=== PATIENT | male | born 1950 | race Caucasian/White ===

== ENCOUNTER 2025-06-29 08:00 | Outpatient (OUT) | payer MEDICARE, OTHER, SELFPAY ==
--- OUTSIDE RECORDS SUMMARY | 2025-06-22 10:30 | XMS_ITS | Encounter Summary ---
Author Organization [facility] Address [address] [place] [address] Care Team Providers Care Injection Mold Technician Name Role Phone Amanda Lopez MD Primary Care Provider [phone] Amanda Lopez MD Unavailable Jana Varner LPN Unavailable [phone] Reason for Visit * ReasonCommentsCerumen Impaction Encounter Details DateTypeDepartmentCare Team (Latest Contact Info)Wkiaequoand87/11/2025 10:30 AM ESTOffice Visit [facility] [address] [place] [address] Kori Teran NP [address] [place], [place] [id number] Impacted cerumen of right ear (Primary Dx); Gynecomastia, male; Low sodium levels; Keratosis, seborrheic Social History Tobacco UseTypesPacks/DayYears UsedDateSmoking Tobacco: NeverSmokeless Tobacco: NeverAlcohol UseStandard Drinks/WeekCommentsYes0 (1 standard drink = 0.6 oz pure alcohol)caffeine: 2-3 cups per dayPHQ-2AnswerDate RecordedPatient Health Questionnaire-2 Yuxqy58608/16/2024Sex and Gender InformationValueDate RecordedSex Assigned at BirthNot on fileLegal DsdZubf9409/24/2022 6:36 PM EDTGender Identity Not on fileSexual OrientationNot on filedocumented as of this encounter Last Filed Vital Signs Vital SignReadingTime TakenCommentsBlood Capomcbu628/8406/22/2025 10:22 AM EST Ubtsj448106/22/2025 10:22 AM OGOMktssyvysvd71.3 ??C (97.4 ??F)06/22/2025 10:22 AM ESTRespiratory Rate--Oxygen Vwwlgxhfzg76%06/22/2025 10:22 AM ESTInhaled Oxygen Concentration--Wkgfub59 kg (167 lb 9.6 oz)06/22/2025 10:22 AM ESTHeight--Body Mass Index30.6506/15/2025 9:57 AM ESTdocumented in this encounter Progress Notes * Kori Teran NP - 06/22/2025 10:30 AM EST Images from the original note were not included. Subjective ?Quick Links Last Note in Specialty Snapshot Edit RFV/CC Edit Screenings Current Meds Patient ID: Nathan Nieves is a 74 y.o. male who presents for Cerumen Impaction. HPI History of Present Illness The patient is a 74-year-old male who presents for evaluation of cerumen impaction, chest pain, lowsodium, hypertension, hyperlipidemia, borderline diabetes, and seborrheic keratosis. He reports an issue with earwax accumulation, for which he has been using a prescribed medication for the past 4 days. He experienced breast pain last week, described as a sensation similar to a lump. An ultrasound of both breasts was performed on Thursday, revealing no abnormalities. However, he continues to experience tenderness in the area, which he distinguishes from cardiac-related pain. He notes that the affected side appears larger than the other, despite being informed that no lump was detected. This is a new symptom for him, and he does not recall any trauma to the area. His father had a lump removed years ago. He was advised to discontinue one of his diuretic medications due to low sodium levels. He has a history of hypertension, with previous readings as high as 180 systolic. His current blood pressure medication has been effective in managing his condition. He is currently on pravastatin for cholesterol management. His A1c level has decreased from 6.3 to 6.2 since his last visit. He was prescribed metformin but discontinued it due to gastrointestinal side effects. He undergoes routine blood sugar monitoring every 3 months. He has several moles on his back and is under the care of a hvac designer, whom he visits annually.He has had a few moles removed in the past. Supplemental Information He reports no current issues with his prostate, which was treated 6 to 7 years ago. FAMILY HISTORY His father had a lump removed years ago. MEDICATIONS Current: pravastatin Discontinued: metformin ?Quick Review Review Full History Edit History Meds - Current Medications[1] --- PMH - Abnormal vascular flow COVID Diverticulosis DM (diabetes mellitus) (HCC) Enlarged prostate Esophageal reflux Hoarse HTN (hypertension) Hx of thyroid nodule Incarcerated ventral hernia Localized osteoarthrosis Mixed hyperlipidemia Objective ?Quick Links Add Vitals Timeline (Adult) Labs Imaging Results Review Trend Vitals ?? Avoid pulling in long tables of results. Comment on relevant results to support your medical decision making. Temp 97.4 ??F Wt 167 lb 9.6 oz BMI 30.65 kg/m?? Physical Exam Vitals reviewed. HENT: Head: Normocephalic and atraumatic. Right Ear: There is impacted cerumen. Left Ear: There is impacted cerumen. Nose: Nose normal. Mouth/Throat: Mouth: Mucous membranes are moist. Eyes: Pupils: Pupils are equal, round, and reactive to light. Cardiovascular: Rate and Rhythm: Normal rate and regular rhythm. Pulses: Normal pulses. Heart sounds: Normal heart sounds. Pulmonary: Effort: Pulmonary effort is normal. Breath sounds: Normal breath sounds. Chest: Breasts: Right: Swelling and tenderness present. Left: Swelling and tenderness present. Musculoskeletal: Cervical back: Neck supple. Skin: General: Skin is warm and dry. Capillary Refill: Capillary refill takes less than 2 seconds. Findings: No rash. Comments: Multiple seborrheic keratosis lesions noted scattered throughout the back Neurological: General: No focal deficit present. Mental Status: He is alert and oriented to person, place, and time. Physical Exam Vital Signs: Blood pressure is normal. HEENT: Cerumen impaction noted in the ears. Eardrum visible on one side. Integumentary: Seborrheic keratosis noted on the back. ?Quick Links Full Problem List Cardiology Diabetes GI Hypertension Thyroid Assessment & Plan Gynecomastia, male Orders: Testosterone; Future Low sodium levels Orders: Comprehensive metabolic panel; Future Impacted cerumen of right ear Keratosis, seborrheic Assessment & Plan 1. Cerumen impaction. The patient reports using ear drops for the past 4 days. Examination reveals that one ear is ready for cleaning, while the other is not as severe. An ear irrigation will be performed today to alleviate the cerumen impaction. 2. Gynomastica The patient reports chest pain associated with a lump-like sensation. An ultrasound of both breastswas performed, showing mild to moderate nodular gynecomastia without any neoplasm. Blood work will be conducted to further investigate the cause of the swelling. Consideration for Aldactone contributing to this issue, depending on results of testosterone, we may DC this medication. 3. Low sodium. The patient was previously advised to stop taking one of his water pills due to low sodium levels. Blood work will be rechecked today to monitor his sodium levels. 4. Hypertension. The patient's blood pressure is currently well-controlled at around 130 mmHg. He is on a new medication that has been effective in managing his hypertension. Continued monitoring of blood pressure isrecommended. 5. Hyperlipidemia. The patient's triglycerides are slightly elevated at 188 mg/dL, but his LDL is well-controlled at 72 mg/dL. Lifestyle modifications are recommended to manage his triglyceride levels. 6. Borderline diabetes. The patient's A1c has improved from 6.3% to 6.2%. He is not currently taking metformin due to gastrointestinal issues. Continued monitoring of blood glucose levels every 3 months is recommended. 7. Seborrheic keratosis. The patient has multiple seborrheic keratoses on his back, which are benign. He will continue to follow with dermatology annually. PROCEDURE Procedure: Earwax removal - Procedural Discussion: Discussed the need to flush out earwax due to blockage and discomfort. Patient had been using medicine for the past 4 days to soften the wax. - Technique: Earwax was softened with medicine for 4 days prior to the procedure. Earwax removal was performed by flushing out the ear canal. - Post-Procedural Discussion: Earwax removal was completed successfully. The ear canal was cleared,and the eardrum was visible. He will follow up in 3 months or earlier if needed. [1] ascorbic acid (Vitamin C) 100 MG tablet aspirin 81 MG EC tablet carbamide peroxide (Debrox) 6.5 % otic solution carvedilol (Coreg) 25 MG tablet ezetimibe (Zetia) 10 MG tablet Multiple Vitamin (multivitamin) tablet omeprazole (PriLOSEC) [address] capsule pravastatin (Pravachol) 10 MG tablet spironolactone (Aldactone) 50 MG tablet valsartan (Diovan) 320 MG tablet chlorthalidone (Hygroton) 25 MG tablet documented in this encounter Plan of Treatment DateTypeDepartmentCare Team (Latest Contact Info)Bgxhtuqvdhr37/09/2026 10:30 AM EDTOffice Visit [facility] [address] [place] [address] Kori Teran NP [address] [place], [place] [phone] documented as of this encounter Procedures Procedure NamePriorityDate/TimeAssociated DiagnosisCommentsTESTOSTERONE, TOTAL, MALES (ADULT), XHTyabfmu14/11/2025 10:58 AM EST Gynecomastia, male COMPREHENSIVE METABOLIC CSULUTutzgqe78/11/2025 10:58 AM EST Low sodium levels documented in this encounter Results * (ABNORMAL) Testosterone (06/22/2025 10:58 AM EST)ComponentValueRef RangeTest MethodAnalysis TimePerformed AtPathologist SignatureTESTOSTERONE, TOTAL, MALES (ADULT), IA131(L)250 - 827 ng/dLQUESTComment: In hypogonadal males, Testosterone, Total, LC/MS/MS, is the recommended assay due to the diminished accuracy of immunoassay at levels below 250 ng/dL. This test code (00439) must be collected in a red-top tube with no gel. Specimen (Source)Anatomical Location / LateralityCollection Method / Volume Collection TimeReceived TimeBloodVenous blood specimen / Vizrtjl9606/22/2025 10:58 AM EST06/22/2025 10:58 AM EST Narrative Resulting Agency Comment Performing Organization Information ?Site ID: QPT ?Name: [facility] ?Address: [address] [place] [address], [address] [place] [id number] ?Director: Tomás Sharma MD Authorizing ProviderResult TypeResult StatusKori Teran NPLAB BLOOD ORDERABLESFinal ResultPerforming OrganizationAddressCity/State/ZIP CodePhone Number [facility] * (ABNORMAL) Comprehensive metabolic panel (06/22/2025 10:58 AM EST)Component ValueRef RangeTest MethodAnalysis TimePerformed AtPathologist SignatureGlucose 9965 - 99 mg/dLQUESTComment: ? Fasting reference interval AKN704 - 25 mg/dLQUESTCreatinine0.970.70 - 1.28 mg/vSVSLJNOUWW95> OR = 60 mL/min/1.59l0BSZOJUYG/CREATININE RATIOSEE NOTE: (calc)QUESTComment: ?? Not Reported: BUN and Creatinine are within ?? reference range. ? Wgrlmg497(L)135 - 146 mmol/LQUESTPotassium, Bld4.73.5 - 5.3 mmol/LQUESTChloride 96(L)98 - 110 mmol/LQUESTCarbon Apyccxe0306 - 32 mmol/LQUESTCalcium9.38.6 - 10.3 mg/dLQUESTPROTEIN, TOTAL7.06.1 - 8.1 g/dLQUESTALBUMIN4.53.6 - 5.1 g/dLQUEST GLOBULIN2.51.9 - 3.7 g/dL (calc)QUESTALBUMIN/GLOBULIN RATIO1.81.0 - 2.5 (calc) QUESTBILIRUBIN, TOTAL0.40.2 - 1.2 mg/dLQUESTALKALINE ONISEPKULZZ0575 - 144 U/L ZTASKSSA6907 - 35 U/VKNLRJNWT351 - 46 U/LQUESTSpecimen (Source)Anatomical Location / LateralityCollection Method / VolumeCollection TimeReceived TimeBlood Venous blood specimen / Dpzdwfs4806/22/2025 10:58 AM EST06/22/2025 10:58 AM EST Narrative Resulting Agency Comment Performing Organization Information ?Site ID: QPT ?Name: [facility] ?Address: [facility], [address] [place] [phone] ?Director: Tomás Sharma MD Authorizing ProviderResult TypeResult StatusNavos Health Kimberlipearisburg NPLAB BLOOD ORDERABLESFinal ResultPerforming OrganizationAddressCity/State/ZIP CodePhone Number [facility]ST documented in this encounter Visit Diagnoses Diagnosis Impacted cerumen of right ear- Primary Impacted cerumen Gynecomastia, male Hypertrophy of breast Low sodium levels Hyposmolality and/or hyponatremia Keratosis, seborrheic Other seborrheic keratosis documented in this encounter Additional Health Concerns AssessmentNoted TimePHQ-9 Depression Total Score: 9:00 AM EST documented as of this encounter Care Teams Team MemberRelationshipSpecialtyStart DateEnd Date Amanda Lopez MD [address] [place], [place] [address] PCP - GeneralFamily Medicine11/18/22 Amanda Lopez MD [address] [place], [place] [phone] PCP - ACO Reach09/11/23 Jana Varner LPN Licensed Practical NurseFamily Medicine10/19/24documented as of this encounter
--- OUTSIDE RECORDS SUMMARY | 2025-07-03 07:18 | XMS_ITS | Encounter Summary ---
Author Organization [facility] Address [address] [place] [address] Care Team Providers Care Marketing Project Specialist Name Role Phone Amanda Lopez MD Primary Care Provider [phone] Amanda Lopez MD Unavailable Jana Varner LPN Unavailable [phone] Reason for Referral * Consultation (Routine) - Pending ReviewSpecialtyDiagnoses / ProceduresReferred By ContactReferred To ContactEndocrinology Diagnoses Low testosterone Gynecomastia Procedures AR OFFICE/OUTPATIENT NEW HIGH MDM 60 MINUTES Kori Teran NP [address] [place] [address] Phone: tel: fax: Jessee Cormier MD [address] [facility], [address] [place] [address] Phone: tel: fax: Referral IDStatusReasonStart DateExpiration DateVisits RequestedVisits [id number] Review Specialty Services Required / Encounter Details DateTypeDepartmentCare Team (Latest Contact Info)Iqmibwxdfuk83/16/2025Results Follow-Up [facility] [address] [place] [address] Evi Clemons MA Comprehensive metabolic panel, Testosterone Social History Tobacco UseTypesPacks/DayYears UsedDateSmoking Tobacco: NeverSmokeless Tobacco: NeverAlcohol UseStandard Drinks/WeekCommentsYes0 (1 standard drink = 0.6 oz pure alcohol)caffeine: 2-3 cups per dayPHQ-2AnswerDate RecordedPatient Health Questionnaire-2 Fsdvq86508/16/2024Sex and Gender InformationValueDate RecordedSex Assigned at BirthNot on fileLegal UycVkgf4609/24/2022 6:36 PM EDTGender Identity Not on fileSexual OrientationNot on filedocumented as of this encounter Plan of Treatment DateTypeDepartmentCare Team (Latest Contact Info)Gsbvctmruav39/09/2026 10:30 AM EDTOffice Visit [facility] [address] [place] [address] Kori Teran NP [address] [place], [place] [phone] NameTypePriorityAssociated DiagnosesOrder ScheduleAmbulatory referral to EndocrinologyOutpatient ReferralRoutine Low testosterone Gynecomastia Expected: 06/27/2025 (Approximate), Expires: 12/26/2025documented as of this encounter Visit Diagnoses Diagnosis Gynecomastia- Primary Hypertrophy of breast Low testosterone documented in this encounter Additional Health Concerns AssessmentNoted TimePHQ-9 Depression Total Score: 9:00 AM EST documented as of this encounter Care Teams Team MemberRelationshipSpecialtyStart DateEnd Date Amanda Lopez MD [address] [place], [place] [phone] PCP - GeneralFamily Medicine11/18/22 Amanda Lopez MD [address] [place] [address] PCP - ACO Reach09/11/23 Jana Varner LPN Licensed Practical NurseFamily Medicine10/19/24documented as of this encounter
--- OUTSIDE RECORDS SUMMARY | 2025-07-03 07:18 | XMS_ITS | Encounter Summary ---
Author Organization [facility] Address [address] [place] [address] Care Team Providers Care Control Clerk Subassembly Name Role Phone Amanda Lopez MD Primary Care Provider [phone] Amanda Lopez MD Unavailable Jana Varner LPN Unavailable [phone] Encounter Details DateTypeDepartmentCare Team (Latest Contact Info)Tohvzyjpxvf42/05/2025Results Follow-Up [facility] [address] [place] [address] Amanda Lopez MD [address] [place], [place] [phone] POCT glycosylated hemoglobin (Hb A1C) docked device, Comprehensive metabolic panel, CBC and differential, Additional followed-up results: 3 Social History Tobacco UseTypesPacks/DayYears UsedDateSmoking Tobacco: NeverSmokeless Tobacco: NeverAlcohol UseStandard Drinks/WeekCommentsYes0 (1 standard drink = 0.6 oz pure alcohol)caffeine: 2-3 cups per dayPHQ-2AnswerDate RecordedPatient Health Questionnaire-2 Jjqfd81808/16/2024Sex and Gender InformationValueDate RecordedSex Assigned at BirthNot on fileLegal BjoSqzq1809/24/2022 6:36 PM EDTGender Identity Not on fileSexual OrientationNot on filedocumented as of this encounter Miscellaneous Notes * Telephone Encounter - Jeannie Rodriguez - 06/19/2025 12:55 PM EST Pt received his messages on Tuesday 06/19/ he is scheduled to return on and will stop the medication and add salt to his food between now and then. * Telephone Encounter - Deepti Gotti MA - 06/19/2025 10:16 AM EST L/m for pt to call the office back. * Telephone Encounter - Deepti Gotti MA - 06/19/2025 10:16 AM EST ----- Message from Dr. Amanda Lopez sent at 06/18/2025 8:19 PM EST ----- No signs of cancer or lump, mild enlargement of breast ( gynecomastia). Repeat in 6 months for comparison ----- Message ----- From: Interface, Incoming Img Psone Background Sent: 06/17/2025 4:12 PM EST To: Amanda Lopez MD documented in this encounter Plan of Treatment DateTypeDepartmentCare Team (Latest Contact Info)Ilucifpekde86/09/2026 10:30 AM EDTOffice Visit [facility] [address] [place] [phone] Kori Teran NP [address] [place] [address] NameTypePriorityAssociated DiagnosesOrder ScheduleRight breast US limitedImaging Routine Gynecomastia, male Expected: 12/17/2025, Expires: 08/19/2026Left breast US limitedImagingRoutine Gynecomastia, male Expected: 12/17/2025, Expires: 08/19/2026documented as of this encounter Visit Diagnoses Diagnosis Gynecomastia, male- Primary Hypertrophy of breast documented in this encounter Additional Health Concerns AssessmentNoted TimePHQ-9 Depression Total Score: 9:00 AM EST documented as of this encounter Care Teams Team MemberRelationshipSpecialtyStart DateEnd Date Amanda Lopez MD [address] [place], [place] [phone] PCP - GeneralFamily Medicine11/18/22 Amanda Lopez MD [address] [place] [address] PCP - ACO Reach09/11/23 Jana Varner LPN Licensed Practical NurseFaboston children's hospital Medicine10/19/24documented as of this encounter
--- OUTSIDE RECORDS SUMMARY | 2025-07-03 07:18 | XMS_ITS | Encounter Summary ---
Author Organization [facility] Address [address] [place] [address] Care Team Providers Care Fire Engineer Name Role Phone Amanda Lopez MD Primary Care Provider [phone] Amanda Lopez MD Unavailable Jana Varner LPN Unavailable [phone] Encounter Details DateTypeDepartmentCare Team (Latest Contact Info)Vlerkztgeph17/11/2025amboo flowsheet [facility] [address] [place] [address] Kori Teran NP [address] [place], [place] [address] Social History Tobacco UseTypesPacks/DayYears UsedDateSmoking Tobacco: NeverSmokeless Tobacco: NeverAlcohol UseStandard Drinks/WeekCommentsYes0 (1 standard drink = 0.6 oz pure alcohol)caffeine: 2-3 cups per dayPHQ-2AnswerDate RecordedPatient Health Questionnaire-2 Xorts96708/16/2024Sex and Gender InformationValueDate RecordedSex Assigned at BirthNot on fileLegal NjoZsbj8409/24/2022 6:36 PM EDTGender Identity Not on fileSexual OrientationNot on filedocumented as of this encounter Plan of Treatment DateTypeDepartmentCare Team (Latest Contact Info)Yginnmurtkt08/09/2026 10:30 AM EDTOffice Visit [facility] [address] [facility] [place] [address] Kori Teran NP [address] [facility] [place] [address] documented as of this encounter Visit Diagnoses Not on filedocumented in this encounter Additional Health Concerns AssessmentNoted TimePHQ-9 Depression Total Score: 9:00 AM EST documented as of this encounter Care Teams Team MemberRelationshipSpecialtyStart DateEnd Date Amanda Lopez MD [address] [facility] [place], [place] [phone] PCP - GeneralFamily Medicine11/18/22 Amanda Lopez MD [address] [facility] [place], [place] [phone] PCP - ACO Reach09/11/23 Jana Varner LPN Licensed Practical NurseFamily Medicine10/19/24documented as of this encounter
--- OUTSIDE RECORDS SUMMARY | 2025-07-03 07:18 | XMS_ITS | Encounter Summary ---
Author Organization [facility] Address [address] [place] [address] Care Team Providers Care Senior Mechanical Designer Name Role Phone Amanda Loepz MD Primary Care Provider [phone] Amanda Lopez MD Unavailable Jana Varner LPN Unavailable [phone] Encounter Details DateTypeDepartmentCare Team (Latest Contact Info)Qogxeggzthi58/11/2025Travel Social History Tobacco UseTypesPacks/DayYears UsedDateSmoking Tobacco: NeverSmokeless Tobacco: NeverAlcohol UseStandard Drinks/WeekCommentsYes0 (1 standard drink = 0.6 oz pure alcohol)caffeine: 2-3 cups per dayPHQ-2AnswerDate RecordedPatient Health Questionnaire-2 Atsat86708/16/2024Sex and Gender InformationValueDate RecordedSex Assigned at BirthNot on fileLegal DalIdjk0309/24/2022 6:36 PM EDTGender Identity Not on fileSexual OrientationNot on filedocumented as of this encounter Plan of Treatment DateTypeDepartmentCare Team (Latest Contact Info)Saaoqdnhaal64/09/2026 10:30 AM EDTOffice Visit [facility] [address] [place] [address] Kori Teran NP [address] [place] [address] documented as of this encounter Visit Diagnoses Not on filedocumented in this encounter Additional Health Concerns AssessmentNoted TimePHQ-9 Depression Total Score: 9:00 AM EST documented as of this encounter Care Teams Team MemberRelationshipSpecialtyStart DateEnd Date Amanda Lopez MD [address] [place], [place] [phone] PCP - GeneralFamily Medicine11/18/22 Amanda Lopez MD [address] [place] [address] PCP - ACO Reach09/11/23 Jana Varner LPN Licensed Practical NurseFamily Medicine10/19/24documented as of this encounter
--- OUTSIDE RECORDS SUMMARY | 2025-07-03 07:18 | XMS_ITS | Patient Health Record ---
Author Organization [facility] vices Address [address], [place] [id number] Care Team Providers Care Cda Teacher Name Role Phone Saadia Yarbrough Unavailable [phone] Etelvina Hurtadoantonio Unavailable [phone] Mitzi Cotton Unavailable [phone] Allergies Allergen (clinical drug ingredient) Drug/Non Drug Allergy documented on EMR Reaction Allergy Type Onset Date Status SeasonaleUnknownDrug AllergyActive Reason For Referral No Information Medications Medication SIG (Take, Route, Frequency, Duration) Notes Start Date End Date Status Vitamin C ActiveDoxazosin Mesylate 8 MG TabletOral; Duration: 90 DaysNot-Taking/PRNAspirin ActiveMetoprolol Succinate ERNot-Taking/PRNLosartan Potassium 100 MG Tablet1 tablet Orally Once a dayNot-Taking/PRNhydroCHLOROthiazide 50 MG TabletTAKE 1 TABLET BY MOUTH EVERY DAY IN THE MORNING Oral; Duration: 90 DaysActiveOmeprazole 20 MG Capsule Delayed ReleaseTAKE 1 CAPSULE (20 MG) BY MOUTH IN THE MORNING Oral; Duration: 90 DaysActiveCarvedilol 25 MG TabletOral; Duration: 90 Days ActiveEzetimibe 10 MG TabletTAKE 1 TABLET BY MOUTH EVERY DAY Oral; Duration: 90 DaysActivemetFORMIN HCl 500 MG TabletOral; Duration: 90 DaysNot-Taking/PRN MultivitaminActivehydrALAZINE HCl 10 MG TabletTAKE 1 TABLET BY MOUTH THREE TIMES DAILY Oral; Duration: 90 DaysNot-Taking/PRNSpironolactone 50 MG TabletOral; Duration: 90 DaysActiveValsartan 320 MG TabletOral; Duration: 90 DaysActive Pravastatin Sodium 10 MG TabletOral; Duration: 90 DaysActive Social History Tobacco Use: Social History Observation Description Date Details (start date - stop date) Never Smoker NA - NA Sex Assigned At : Social History Observation Description Sex Assigned At Male Social History Tobacco Use:Social InfoQuestionAnswerNotesTobacco Use/SmokingTobacco use: nonsmoker Problems Problem Type SNOMED Code ICD Code Onset Dates Problem Status W/U Status Risk Notes Problem Body mass index 30+ - obesity (932473075) BMI 30.0-30.9,adult (Z68.30) Activeconfirmed Vital Signs Heart Rate 65 /min 01/12/2025 Blood pressure bqqayuzlp33 mm Hg01/12/2025Weight-kg74.84 kg01/12/20255442Jouzqs24 in 01/12/2025lood pressure vsxiomxi064 mm Hg01/12/20253209Poqbuc905 lbs01/12/2025MI 30.18 kg/m201/12/2025 Encounters Encounter Location Date Provider Diagnosis [facility] [address], [place] [id number] 07/07/2024 Mitzi Cotton Encounter for scre ening for dental disorders Z13.84 ; Dietary counseling Z71.3 ; Exercise counseling Z71.82 ; BMI 30.0-30.9,adult Z68.30 ; Encounter for dental examination and cleaning without abnormal findings Z01.20 ; 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 ; Dental caries K02.9 and Encounter for dental examination and cleaning with abnormal findings Z01.21 [facility] [address], [place] [id number] 01/12/2025 Drewadelaide Bartlettjose e BMI 30.0-30.9,adul t Z68.30 ; Dietary counseling Z71.3 ; Exercise counseling Z71.82 ; Encounter for dental examination and cleaning without abnormal findings Z01.20 and Dental caries K02.9 Assessments Encounter Date Diagnosis (ICD Code) Assessment Notes Treatment Notes Treatment Clinical Notes Section Notes 07/07/2024 Encounter for screening for dent al disorders (ICD-10 - Z13.84) 07/07/2024ietary counseling (ICD-10 - Z71.3)01/12/2025MI 30.0-30.9,adult (ICD- 10 - Z68.30)01/12/2025Dietary counseling (ICD-10 - Z71.3)07/07/2024Exercise counseling (ICD-10 - Z71.82)12/26/2024BMI 30.0-30.9,adult (ICD-10 - Z68.30) 01/12/2025Exercise counseling (ICD-10 - Z71.82)01/12/2025Encounter for dental examination and cleaning without abnormal findings (ICD-10 - Z01.20)07/07/2024 Encounter for dental examination and cleaning without abnormal findings (ICD-10 - Z01.20)07/07/2024Irreversible pulpitis (ICD-10 - K04.02)01/12/2025Dental caries (ICD-10 - K02.9)07/07/2024ental caries (ICD-10 - K02.9)07/07/2024 Encounter for dental examination and cleaning with abnormal findings (ICD-10 - Z01.21) Plan Of Treatment Next Appt Details Provider Name:Ricardo Hurtado , 08/04/2025 11:45:00 AM, [address] [place] [address], [phone], Insurance Providers Payer Name Payer Address Payer Phone Subscriber Number Group Number Insured Name Patient Relationship to Insured Coverage Start Date Coverage End Date [employer] [place] [address] [address] [place] [address] [id number] Corazon Nieves - patient is the [id number] 2019 Medical (General) History Medical History History ICD Code Hypertension
--- OUTSIDE RECORDS SUMMARY | 2025-07-03 07:18 | XMS_ITS | Clinical Summary ---
Author Organization [facility] Address [address] [facility] [place] [address] Care Team Providers Care Field Education Coordinator Name Role Phone Unavailable Primary Care Provider Unavailabl e Source Comments The following information is NOT included in Care Everywhere downloads:Psychiatric notes, ECG results, Cardiac Rehab notes, Pulmonary Function notes, data from [employer] (includes but not limited toPregnancy data,audiograms, eye exams, pre-surgical evaluation notes, well-child exam data).[facility] Allergies No known active allergies Medications MedicationSigDispense QuantityRefillsLast FilledStart DateEnd DateStatus amLODIPine (NORVASC) 10 MG tablet Take 10 mg by mouth daily.Active losartan (COZAAR) 100 MG tablet Take 100 mg by mouth daily.Active tamsulosin (FLOMAX) 0.4 MG capsule Take 0.4 mg by mouth daily.Active sertraline (ZOLOFT) 25 MG tablet Take 25 mg by mouth daily.Active omeprazole (PRILOSEC) 40 MG capsule Take 40 mg by mouth daily.Active Art-3 Fatty Acids (FISH OIL CONCENTRATE) 300 MG CAPS Take 2 g by mouth.Active Multiple Vitamin (ONE-DAILY MULTIVITAMINS) TABS Take by mouth.Active metoprolol XL (TOPROL-XL) 100 MG XL tablet Take 100 mg by mouth daily.Active clonidine (CATAPRES) 0.2 MG tablet Take 0.2 mg by mouth 2 times daily.Active GARLIC ORAL Take by mouth.Active Ascorbic Acid (VITAMIN C ORAL) Take by mouth.Active metformin (GLUCOPHAGE) 500 MG tablet Take 500 mg by mouth daily. TAKES IN THE EVENINGActive Social History Tobacco UseTypesPacks/DayYears UsedDateSmoking Tobacco: NeverSmokeless Tobacco: NeverAlcohol UseStandard Drinks/WeekCommentsNo0 (1 standard drink = 0.6 oz pure alcohol)Substance UseTypesUse/WeekCommentsNoSex and Gender InformationValueDate RecordedSex Assigned at BirthNot on fileLegal WbnFjns33/01/2016 9:17 AM EDT Gender IdentityNot on fileSexual OrientationNot on file Last Filed Vital Signs Vital SignReadingTime TakenCommentsBlood Idhgxbka327/4801 1:20 PM EST Sdjgl8268 1:20 PM PMCOapwrnfvmuj46.7 ??C (98 ??F)07/21/2016 12:30 PM EST Respiratory Aqcz917407/21/2016 1:20 PM ESTOxygen Vplgrkiqoz40%07/21/2016 1:20 PM ESTInhaled Oxygen Concentration--Rjjgrz42.3 kg (155 lb)07/21/2016 9:16 AM EST Height--Body Mass Index-- Plan of Treatment Health MaintenanceDue DateLast UhohWptmiyrkCsnzvnsuxhu31/05/1953Hepatitis C Hmowrezy06/05/1971Tdap Nzywtbu1411/14/1970Hepatitis A (HAV) Vaccine (optional start 19+ years)11/15/19715954Ixjfazfnwcx03/05/1988CRC Zjmwknwvo19/05/1998Cologuard (Stool DNA)1997FIT1997Pneumococcal Vaccine(s) (50+ yrs) (1 of 1 - PCV)2002Shingles (RZV) Vaccine (1 of 2)2002Hepatitis B (HBV) Vaccine (optional start 60+ years)2012COVID-19 Vaccine (1 - 2024- season) 2025Influenza Vaccine (#1)2025RSV vaccine (adult) (1 - 1-dose 75+ series)11/15/2027 Insurance [address] [place] [address]
--- OUTSIDE RECORDS SUMMARY | 2025-07-03 07:19 | XMS_ITS | Encounter Summary ---
Author Organization [facility] Address [address] [place] [address] Care Team Providers Care Budget Engineer Name Role Phone Amanda Lopez MD Primary Care Provider [phone] Amanda Lopez MD Unavailable Jana Varner LPN Unavailable [phone] Reason for Visit * ReasonCommentsMed Refill Encounter Details DateTypeDepartmentCare Team (Latest Contact Info)Bxbifjxqued63/06/2025Refill [facility] [address] [place] [address] Amanda Lopez MD [address] [place], [place] [id number] Type 2 diabetes mellitus with other specified complication (HCC); Hyperlipidemia, unspecified Social History Tobacco UseTypesPacks/DayYears UsedDateSmoking Tobacco: NeverSmokeless Tobacco: NeverAlcohol UseStandard Drinks/WeekCommentsYes0 (1 standard drink = 0.6 oz pure alcohol)caffeine: 2-3 cups per dayPHQ-2AnswerDate RecordedPatient Health Questionnaire-2 Oswhg81608/16/2024Sex and Gender InformationValueDate RecordedSex Assigned at BirthNot on fileLegal UjvEqxn9909/24/2022 6:36 PM EDTGender Identity Not on fileSexual OrientationNot on filedocumented as of this encounter Miscellaneous Notes * Telephone Encounter - Amanda Lopez MD - 06/18/2025 8:46 PM EST Approvals with refills documented in this encounter Plan of Treatment DateTypeDepartmentCare Team (Latest Contact Info)Djiejapwrgo54/09/2026 10:30 AM EDTOffice Visit [facility] [address] [place] [address] Kori Teran NP [address] [place], [place] [phone] documented as of this encounter Visit Diagnoses Diagnosis Type 2 diabetes mellitus with other specified complication (HCC) Hyperlipidemia, unspecified documented in this encounter Additional Health Concerns AssessmentNoted TimePHQ-9 Depression Total Score: 9:00 AM EST documented as of this encounter Care Teams Team MemberRelationshipSpecialtyStart DateEnd Date Amanda Lopez MD [address] [place], [place] [id number] PCP - GeneralFamily Medicine11/18/22 Amanda Lopez MD [address] [place], [place] [id number] PCP - ACO Reach09/11/23 Jana Varner LPN Licensed Practical NurseFamily Medicine10/19/24documented as of this encounter
--- OUTSIDE RECORDS SUMMARY | 2025-07-03 07:19 | XMS_ITS | Clinical Summary ---
Author Organization [facility] Address [address] [place] [address] Care Team Providers Care [employer] Supervisor Name Role Phone Amanda Lopez MD Primary Care Provider [phone] Amanda Lopez MD Unavailable Jana Varner LPN Unavailable [phone] Allergies Active AllergyReactionsCriticalityNoted PktmZmkdtybnQifywcpAjbezsd07/20/2023 Sulfa Eqpytxvdldr01/20/2023 Other Reaction(s): full body rash Sulfamethoxazole-YwfzwbptixifXvggYvzr45/04/2020 Other Reaction(s): full body rash Severe rash Medications MedicationSigDispense QuantityRefillsLast FilledStart DateEnd DateStatus ascorbic acid (Vitamin C) 100 MG tablet Take 100 mg by mouth in the morning.Active aspirin 81 MG EC tablet Take 81 mg by mouth in the morning.Active Multiple Vitamin (multivitamin) tablet Take by mouth.Active carvedilol (Coreg) 25 MG tablet Take 25 mg by mouth in the morning and 25 mg in the evening.5Active chlorthalidone (Hygroton) 25 MG tablet Take 25 mg by mouth in the morning.5Active valsartan (Diovan) 320 MG tablet Take 320 mg by mouth in the morning.5Active spironolactone (Aldactone) 50 MG tablet Take 50 mg by mouth Daily5Active ezetimibe (Zetia) 10 MG tablet Indications:Mixed hyperlipidemiaTAKE 1 TABLET (10 MG) BY MOUTH DAILY. 90 tablet 5Active omeprazole (PriLOSEC) [address] capsule Indications:Gastroesophageal reflux disease with esophagitis without hemorrhage TAKE 1 CAPSULE (20 MG) BY MOUTH IN THE MORNING 90 capsule 1125Active pravastatin (Pravachol) 10 MG tablet Indications:Type 2 diabetes mellitus with other specified complication (HCC), Hyperlipidemia, unspecifiedTAKE 1 TABLET (10 MG) BY MOUTH DAILY. 90 tablet 1115Active metFORMIN (Glucophage) 500 MG tablet Indications:Type 2 diabetes mellitus without complication, without long-term current use of insulin (HCC)TAKE 1 TABLET BY MOUTH ONCE A DAY WITH MEALS 90 90 tablet /05/2025Discontinued(Therapy completed) omeprazole (PriLOSEC) [address] capsule Indications:Gastroesophageal reflux disease with esophagitis without hemorrhage Take 1 capsule (20 mg) by mouth in the morning. 90 capsule 106/10/2024Discontinued pravastatin (Pravachol) 10 MG tablet Indications:Type 2 diabetes mellitus with other specified complication (HCC), Hyperlipidemia, unspecifiedTake 1 tablet (10 mg) by mouth Daily 90 tablet 106/01/2025Discontinued linaGLIPtin (Tradjenta) 5 MG tablet Indications:Type 2 diabetes mellitus with other circulatory complication, without long-term current use of insulin (HCC)Take 1 tablet (5 mg) by mouth Daily 100 tablet Discontinued amLODIPine (Norvasc) 10 MG tablet Indications:Essential hypertensionTAKE 1 TABLET (10 MG) BY MOUTH DAILY. 90 tablet 1108Discontinued(Therapy completed) empagliflozin (Jardiance) 25 MG Indications:Type 2 diabetes mellitus with other circulatory complication, without long-term current use of insulin (HCC)Take 1 tablet (25 mg) by mouth Daily 90 tablet 309//05/2025Discontinued carbamide peroxide (Debrox) 6.5 % otic solution Indications:Impacted cerumen of right earAdminister 5-10 drops into affected ear(s) in the morning and 5-10 drops before bedtime. Do all this for 4 days. 15 mL 12/04/256947/05/2025Expired Active Problems ProblemNoted DateDiagnosed DateMyalgia due to HMG CoA reductase inhibitor 10/05/2023nxiety about qsropo2812/30/20226961Ogsstwa76/20/2023enign localized prostatic hyperplasia with lower urinary tract symptoms (LUTS)12/30/2022 Essential squrdbmnqmoy17/20/2023ERD (gastroesophageal reflux disease)12/30/2022 Naruilovkbfdql18/20/2023Irritable bowel syndrome with xxzcfyskltko03/20/2023OSA (obstructive sleep apnea)12/30/2022 Assessment & Plan (06/27/2025 9:08 PM EST): Good cpap compliane Post-traumatic osteoarthritis of left knee12/30/2022Thyroid dwyvcx9512/30/2022Type II diabetes bdokdbld25/20/2023 Assessment & Plan (06/15/2025 11:49 AM EST): Orders: POCT glycosylated hemoglobin (Hb A1C) docked device Comprehensive metabolic panel; Future CBC and differential; Future Lipid panel; Future Assessment & Plan (03/02/2025 11:22 AM EDT): Orders: POCT glycosylated hemoglobin (Hb A1C) docked device Microalbumin / creatinine urine ratio; Future linaGLIPtin (Tradjenta) 5 MG tablet; Take 1 tablet (5 mg) by mouth Daily Statin belgyskyets43/20/2023Obesity (BMI 30-39.9)03/19/2021 Assessment & Plan (06/27/2025 9:08 PM EST): Reviewed healthy diet and e xercise Benign non-nodular prostatic hyperplasia with lower urinary tract symptoms 08/05/2016 Overview (12/30/2022): Urinary hesitancy. symptoms stable with tamsulosin. Switched to doxazosin 8 mg 10/28 to tx hypertension PVR elevated on renal u/s 12/28 butpatient voided well just after that. Plan to monitor only 02/25/18: Urinary retnetion x 2. 9/10/28: Urodynamics demonstrates adequate bladder contractility. Recommendation was for TURP. In the intervalwe are going to teach him intermittent self catheterization until his surgery. The risks and benefits as outlined in the consent were discussed. All relevant drawings were reviewed. All questions were answered. The risks as outlined in the consent were discusssed/ The patient expressed understanding and wished to proceed 05/04/18: TURP 04/27/18 - final path bph. Doing well. Recheck 6 months 11/09/18: PSA 1.81; pvr 132. AUA symptom score 11 with quality life score of 2. 02/08/19: Transient lower urinary tract dysfunction with constipation. That has resolved. Current PVR minimal. 11/29/19: LUTS - stable after turp. No evidence of bladder neck contracture 12/04/20: Successful TURP. He is doing quite well. He has no evidence of bladder neck contracture. Follow-up as needed Assessment & Plan (06/27/2025 9:08 PM EST): stable Elevated PSA08/05/2016 Overview (12/30/2022): negative pus/bx 06/24. 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 I told him there is an association with prostate cancer with ALEKSANDR PSA is rising. He wants to recheck his psa in 4 months as he is turning 67 and switching insurnace. If his psa continues to rise would recommend repeat bx 12/29/17: Repeat psa improved to 7.15 from 8.03 11/09/18: PSA after TURP normalized. 11/29/19: Normal PSA and exam. Plan recheck 1 year 12/04/20: Normal PSAand exam. He is going to continue to get his PSA screened annually with Dr. Lopez. Renal cyst08/05/2016 Overview (12/30/2022): Complex 2 cm left renal cyst seen on MRA 05/24. Stable renal lesion on MRI 201312/29/17: Renal ultrasound with septated renal cyst. 2.7 x2.4 cm 11/09/18: Follow-up ultrasound stable 2.3 cm renal cyst. Plan to follow with renal u/s 1 year11/29/19: Stable renal cyst. This is stable since 2011. I told him that based on this we can safely say this is benign. Does not need to continue to be followed. Encounters DateTypeDepartmentCare GmhuVgkwvuuobub43/16/2025Results Follow-Up [facility] [address] [place] [address] Evi Clemons MA Comprehensive metabolic panel, Lrqafpmqziii08/11/2025 10:30 AM ESTOffice Visit [place] [address] [place] [address] Kori Teran NP Impacted cerumen of right ear (Primary Dx); Gynecomastia, male; Low sodium levels; Keratosis, ydgzusblmx16/11/2025amboo flowsheet [facility] [address] [facility] [place] [address] Kori Teran NP 06/22/20253259Qkbbjf29/06/2025Refill [place] [address] [place] [address] Amanda Lopez MD Type 2 diabetes mellitus with other specified complication (HCC); Hyperlipidemia, jtmyidfmvbo63/05/2025 11:00 AM ESTAncillary Procedure [facility] [address] [facility] [place] [address] Mass of left breast, unspecified gjjflbyt14/05/2226Sngiqz89/05/2025Results Follow-Up [facility] [address] [place] [phone] Amanda Lopez MD POCT glycosylated hemoglobin (Hb A1C) docked device, Comprehensive metabolic panel, CBC and differential, Additional followed-up results: 10:00 AM ESTOffice Visit [facility] [address] [place] [phone] Amanda Lopez MD Routine general medical examination at a health care facility (Primary Dx); Type 2 diabetes mellitus with other circulatory complication, without long-term current use of insulin (HCC); Heart failure, unspecified (HCC); Prostate cancer screening; Mass of left breast, unspecified quadrant; Benign non-nodular prostatic hyperplasia with lower urinary tract symptoms; JACINTO (obstructive sleep apnea); Obesity (BMI 30-39.9); Impacted cerumen of right ear; Encounter for ogzyaavwmrcd53/04/8173Qykjjv05/04/2025Refill [facility] [address] [place] [phone] Amanda Lopez MD Gastroesophageal reflux disease with esophagitis without /25/2025 Telephone [place] [address] [place] [phone] Amanda Lopez MD 06/05/2025Orders Only [place] [address] [place] [phone] Amanda Lopez MD 06/01/20257241Qnupzk43/20/2025Refill [place] [address] [place] [phone] Amanda Lopez MD Mixed nytuskawbvekbb41/10/2025Patient Outreach [address] [place] [address] Jana Varner LPN from Last 3 Months Immunizations ImmunizationAdministration DatesNext DueInfluenza, High-dose Seasonal, Quadrivalent, Preservative Free06/10/2023Influenza, seasonal, injectable, preservative free06/15/2025Pneumococcal Conjugate PCV 131Pneumococcal Polysaccharide XOZA97517743Kyox36/19/2023Zoster, Dkxxbwxafkw17/28/2021, 11/29/2020 Family History Medical HistoryRelationNameCommentsHypertensionFatherPancreatic cancerFather Breast cancerMotherHypertensionSiblingRelationNameStatusCommentsFatherDeceased MotherDeceasedSiblingAlive Social History Tobacco UseTypesPacks/DayYears UsedDateSmoking Tobacco: NeverSmokeless Tobacco: Never Tobacco Cessation:Counseling Given: Not Answered Alcohol UseStandard Drinks/WeekCommentsYes0 (1 standard drink = 0.6 oz pure alcohol)caffeine: 2-3 cups per dayPHQ-2AnswerDate RecordedPatient Health Questionnaire-2 Hoalk23308/16/2024Sex and Gender InformationValueDate RecordedSex Assigned at BirthNot on fileLegal GczNzop5509/24/2022 6:36 PM EDTGender Identity Not on fileSexual OrientationNot on file Last Filed Vital Signs Vital SignReadingTime TakenCommentsBlood Zqwevffc462/8406/22/2025 10:22 AM EST Elxkw366606/22/2025 10:22 AM JCHNdixwklcvqo42.3 ??C (97.4 ??F)06/22/2025 10:22 AM ESTRespiratory Gywe685708/16/2024 9:57 AM ESTOxygen Exmynfxdgc09%06/22/2025 10:22 AM ESTInhaled Oxygen Concentration--Cnnjad12 kg (167 lb 9.6 oz)06/22/2025 10:22 AM VODFveexl747.5 cm (5' 2 )06/15/2025 9:57 AM ESTBody Mass Index30.6506/15/2025 9:57 AM EST Plan of Treatment DateTypeDepartmentCare Team (Latest Contact Info)Uokcdwitbcf84/09/2026 10:30 AM EDTOffice Visit [facility] [address] [place] [phone] Kroi Teran NP [address] [place], [place] [phone] Health MaintenanceDue DateLast DoneCommentsCT Fyjlwmecrhyz77/05/1953FIT-DNA 1952FIT1952FOBT1952 5459Ifpfjysycnpoe05/05/1953iabetes: Hemoglobin A1C, 03/02/2025, 09/15/2024, Additional history exists Diabetes: Urine Protein Nccupdore70, 12/15/2023, 07/16/2022, Additional history existsMedicare Annual Wellness (AWV), 06/16/2024, 06/10/2023, Additional history existsDiabetes: Retinopathy Screening , 06/22/2023, 10/12/2021, Additional history exists Dnxhrkgzvpl43/06/203303/12/2022, 09/15/2022, 01/23/2016Colorectal Cancer Ziaosfwxe33/06/2033neumococcal Vaccine: 65+ IwmzmBivyasizk09/04/2019, 04/16/2018COVID-19 XuorrrrIcrgnmjgescm42/01/2022, 10/23/2021Influenza Vaccine Cglbzwqch38/04/2025, 06/10/2023 Procedures Procedure NamePriorityDate/TimeAssociated DiagnosisCommentsTESTOSTERONE, TOTAL, MALES (ADULT), JDDvxwjgp03/11/2025 10:58 AM EST Gynecomastia, male COMPREHENSIVE METABOLIC PIKJNOrsgocg63/11/2025 10:58 AM EST Low sodium levels BI US BREAST LIMITED FTFVSvixzuj82/05/2025 11:04 AM EST Mass of left breast, unspecified quadrant PSA, SIQNDIkgsczb41/04/2025 10:21 AM EST Prostate cancer screening LIPID NSXHDHuotqde62/04/2025 10:21 AM EST Type 2 diabetes mellitus with other circulatory complication, without long-term current use of insulin (HCC) CBC (INCLUDES DIFF/PLT)Trfylnl7006/15/2025 10:21 AM EST Type 2 diabetes mellitus with other circulatory complication, without long-term current use of insulin (HCC) COMPREHENSIVE METABOLIC PVFADQkziczy90/04/2025 10:21 AM EST Type 2 diabetes mellitus with other circulatory complication, without long-term current use of insulin (HCC) POCT GLYCOSYLATED HEMOGLOBIN (HGB A1C)Ubumwpj8706/15/2025 10:12 AM EST Type 2 diabetes mellitus with other circulatory complication, without long-term current use of insulin (HCC) MICROALBUMIN / CREATININE URINE MLQMOSxsldnn86/21/2025 11:03 AM EDT Type 2 diabetes mellitus with other circulatory complication, without long-term current use of insulin (HCC) DIABETIC RETINOPATHY SCREENING - OU - BOTH LISNAdriart32/04/2025 12:45 PM EDT JSEPUEEBGHANgeerma21/06/2023 12:00 PM EST from Last 3 Months or Most Recently Relevant to Health Maintenance Results * (ABNORMAL) Testosterone (06/22/2025 10:58 AM EST)ComponentValueRef RangeTest MethodAnalysis TimePerformed AtPathologist SignatureTESTOSTERONE, TOTAL, MALES (ADULT), IA131(L)250 - 827 ng/dLQUESTComment: In hypogonadal males, Testosterone, Total, LC/MS/MS, is the recommended assay due to the diminished accuracy of immunoassay at levels below 250 ng/dL. This test code (16149) must be collected in a red-top tube with no gel. Specimen (Source)Anatomical Location / LateralityCollection Method / Volume Collection TimeReceived TimeBloodVenous blood specimen / Hhxwprm6406/22/2025 10:58 AM EST06/22/2025 10:58 AM EST Narrative Resulting Agency Comment Performing Organization Information ?Site ID: QPT ?Name: [facility] ?Address: [address] [place] [address], [address] [place] [phone] ?Director: Tomás Sharma MD Authorizing ProviderResult TypeResult StatusVeterans Affairs Medical Center BLOOD ORDERABLESFinal ResultPerforming OrganizationAddressCity/State/ZIP CodePhone Number QUEST * (ABNORMAL) Comprehensive metabolic panel (06/22/2025 10:58 AM EST) Only the most recent of2 resultswithin the time period is included. ComponentValueRef RangeTest MethodAnalysis TimePerformed AtPathologist Signature Clwplgs0876 - 99 mg/dLQUESTComment: ? Fasting reference interval BRS851 - 25 mg/dLQUESTCreatinine0.970.70 - 1.28 mg/wCGQRYZLWRZ16> OR = 60 mL/min/1.82r5OGQZPJXL/CREATININE RATIOSEE NOTE:6 - (calc)QUESTComment: ?? Not Reported: BUN and Creatinine are within ?? reference range. ? Ydthme092(L)135 - 146 mmol/LQUESTPotassium, Bld4.73.5 - 5.3 mmol/LQUESTChloride 96(L)98 - 110 mmol/LQUESTCarbon Hnsuxcw7692 - 32 mmol/LQUESTCalcium9.38.6 - 10.3 mg/dLQUESTPROTEIN, TOTAL7.06.1 - 8.1 g/dLQUESTALBUMIN4.53.6 - 5.1 g/dLQUEST GLOBULIN2.51.9 - 3.7 g/dL (calc)QUESTALBUMIN/GLOBULIN RATIO1.81.0 - 2.5 (calc) QUESTBILIRUBIN, TOTAL0.40.2 - 1.2 mg/dLQUESTALKALINE AJPUXIKUFZZ8965 - 144 U/L FVITPIFP3192 - 35 U/FGMEAAYMF880 - 46 U/LQUESTSpecimen (Source)Anatomical Location / LateralityCollection Method / VolumeCollection TimeReceived TimeBlood Venous blood specimen / Xdcsmtc2506/22/2025 10:58 AM EST06/22/2025 10:58 AM EST Narrative Resulting Agency Comment Performing Organization Information ?Site ID: QPT ?Name: [facility] ?Address: [address] [place] [address], [address] [place] [phone] ?Director: Tomás Sharma MD Authorizing ProviderResult TypeResult StatusVeterans Affairs Medical Center BLOOD ORDERABLESFinal ResultPerforming OrganizationAddressCity/State/ZIP CodePhone Number QUEST * Left breast US limited (06/16/2025 11:04 AM EST)Anatomical RegionLaterality ModalityBreastLeftUltrasoundSpecimen (Source)Anatomical Location / Laterality Collection Method / VolumeCollection TimeReceived Time06/17/2025 4:03 PM EST Impressions 06/17/2025 4:09 PM EST Impression: Findings compatible mild to moderate nodular and/or dendritic type gynecomastia in the left subareolar region. Possibility of minimal ill-defined gynecomastia in the right subareolar region. No obvious neoplasm. Follow-up left breast ultrasound study to include similar images including similar comparison rightsubareolar images is recommended in 6 months to assess stability. BI-RADS 3 ELECTRONICALLY SIGNED BY: Rome Galindo M.D. Narrative 06/17/2025 4:09 PM EST Examination: BI US BREAST LIMITED LEFT Reason for Study: left breast mass Comparison: None Technique: Left breast ultrasound study was performed. Images were obtained in the subareolar region of interest. Comparison right subareolar images were obtained and included in the study. Findings: In the left subareolar region area of decreased echogenicity with internal echoes and serpiginous margins compatible with mild to moderate nodular and/or dendritic type gynecomastia. Finding measures approximately 1.6 x 1.1 x 0.6 cm. No obvious associated internal vascularity, minimal posterior shadowing is suggested which is nonspecific. Possibility of minimal ill-defined gynecomastia in the right subareolar region is considered. No obvious solid vascular mass to suggest neoplasm. No obvious abnormal calcifications or vascularity. Authorizing ProviderResult TypeResult StatusAmanda Lopez MDIMG US PROCEDURES Final Result * CBC and differential (06/15/2025 10:21 AM EST)ComponentValueRef RangeTest MethodAnalysis TimePerformed AtPathologist SignatureWHITE BLOOD CELL COUNT7.8 3.8 - 10.8 Thousand/uLQUESTRED BLOOD CELL COUNT4.404.20 - 5.80 Million/uLQUEST RBMNGTQCTX08.513.2 - 17.1 g/gTENUGVZASKJKQFCI42.439.4 - 51.1 %PKATITTK80.881.4 - 101.7 qRFGEOFYLQ17.727.0 - 33.0 wsDZGKEHFTY55.431.6 - 35.4 g/dLQUESTComment: For adults, a slight decrease in the calculated MCHC value (in the range of 30 to 32 g/dL) is most likely not clinically significant; however, it should be interpreted with caution in correlation with other red cell parameters and the patient's clinical condition. RDW13.311.0 - 15.0 %QUESTPLATELET PRTHS497031 - 400 Thousand/uLQUESTMPV9.67.5 - 12.5 fLQUESTABSOLUTE NEUTROPHILS5,1251,500 - 7,800 cells/uLQUESTABSOLUTE LYMPHOCYTES1,350804 - 3,900 cells/uLQUESTABSOLUTE LMODVSQDN766631 - 950 cells/uL QUESTABSOLUTE HISNEMBLVHC75421 - 500 cells/uLQUESTABSOLUTE JTMZOLVWN556 - 200 cells/lXJOQZMDUGLQAJDEIO33.7%JZPFBQCOAFHBVVHB05.6%QUESTMONOCYTES9.0%QUEST EOSINOPHILS3.8%QUESTBASOPHILS0.9%QUESTSpecimen (Source)Anatomical Location / LateralityCollection Method / VolumeCollection TimeReceived TimeBloodVenous blood specimen / Yxxsahy7406/15/2025 10:21 AM EST06/15/2025 10:22 AM EST Narrative Resulting Agency Comment Performing Organization Information ?Site ID: QPT ?Name: [facility] ?Address: [address] [place] [phone] ?Director: Tomás Sharma MD Authorizing ProviderResult TypeResult StatusAmanda Lopez MDLAB BLOOD ORDERABLES Final ResultPerforming OrganizationAddressCity/State/ZIP CodePhone Number QUEST * PSA (06/15/2025 10:21 AM EST)ComponentValueRef RangeTest MethodAnalysis Time Performed AtPathologist SignaturePSA, TOTAL1.31< OR = 4.00 ng/mLQUESTComment: The total PSA value from this assay system is standardized against the WHO standard. The test result will be approximately 20% lower when compared to the equimolar-standardized total PSA (Claire [place]). Comparison of serial PSA results should be interpreted with this fact in mind. This test was performed using the Siemens chemiluminescent method. Values obtained from different assay methods cannot be used interchangeably. PSA levels, regardless of value, should not be interpreted as absolute evidence of the presence or absence of disease. Specimen (Source)Anatomical Location / LateralityCollection Method / Volume Collection TimeReceived TimeBloodVenous blood specimen / Qpikmgf6906/15/2025 10:21 AM EST06/15/2025 10:22 AM EST Narrative Resulting Agency Comment Performing Organization Information ?Site ID: QPT ?Name: [facility] ?Address: [address] [place] [address], [address] [place] [address] ?Director: Tomás Sharma MD Authorizing ProviderResult TypeResult StatusAmanda Lopez MDLAB BLOOD ORDERABLES Final ResultPerforming OrganizationAddressCity/State/ZIP CodePhone Number QUEST * (ABNORMAL) Lipid panel (06/15/2025 10:21 AM EST)ComponentValueRef RangeTest MethodAnalysis TimePerformed AtPathologist SignatureCHOLESTEROL, DCZSB661<200 mg/dLQUESTHDL PFVPSIXVGZO90> OR = 40 mg/tRTCATVKMTBXMXEWNIFY666(H)<150 mg/dL QUESTLDL EJKMIQNBAMY59us/dL (calc)QUESTComment: Reference range: <100 Desirable range <100 mg/dL for primary prevention; <70 mg/dL for patients with CHD or diabetic patients with > or = 2 CHD risk factors. LDL-C is now calculated using the Timur-Richard calculation, which is a validated novel method providing better accuracy than the Friedewald equation in the estimation of LDL-C. Timur SS et al. CARMEN. 2013;310(19): 8793-9456 (http://education.CivilGEO.SportsCstr/faq/KEC389) CHOL/HDLC RATIO3.2<5.0 (calc)QUESTNON HDL JGQELXTCXYD572<130 mg/dL (calc)QUEST Comment: For patients with diabetes plus 1 major ASCVD risk factor, treating to a non-HDL-C goal of <100 mg/dL (LDL-C of <70 mg/dL) is considered a therapeutic option. Specimen (Source)Anatomical Location / LateralityCollection Method / Volume Collection TimeReceived TimeBloodVenous blood specimen / Urbdyot4906/15/2025 10:21 AM EST06/15/2025 10:22 AM EST Narrative Resulting Agency Comment Performing Organization Information ?Site ID: QPT ?Name: [facility] ?Address: [address] [place] [address], [address] [place] [address] ?Director: Tomás Sharma MD Authorizing ProviderResult TypeResult Noelle ROBERTS BLOOD ORDERABLES Final ResultPerforming OrganizationAddressCity/State/ZIP CodePhone Number QUEST * (ABNORMAL) POCT glycosylated hemoglobin (Hb A1C) docked device (06/15/2025 10:12 AM EST)ComponentValueRef RangeTest MethodAnalysis TimePerformed At Pathologist SignatureHemoglobin A1C6.2Specimen (Source)Anatomical Location / LateralityCollection Method / VolumeCollection TimeReceived TimeBloodVenous blood specimen / Kinvmng3406/15/2025 10:12 AM EST Narrative Authorizing ProviderResult TypeResult Noelle Lopez MDPOINT OF CARE TEST ENTER/EDIT ORDERABLESFinal Result * Microalbumin / creatinine urine ratio (03/02/2025 11:03 AM EDT)ComponentValue Ref RangeTest MethodAnalysis TimePerformed AtPathologist SignatureCREATININE, RANDOM REDPV39831 - 320 mg/dLQUESTALBUMIN, URINE1.4See Note: mg/dLQUEST Comment: Reference Range: Reference Range Not established ALBUMIN/CREATININE RATIO, RANDOM URINE8<30 mg/g creatQUESTComment: The ADA defines abnormalities in albumin excretion as follows: Albuminuria Category ?Result (mg/g creatinine) Normal to Mildly increased <30 Moderately increased ? 30-299 Severely increased > OR = 300 The ADA recommends that at least two of three specimens collected within a 3-6 month period be abnormal before considering a patient to be within a diagnostic category. Specimen (Source)Anatomical Location / LateralityCollection Method / Volume Collection TimeReceived TimeUrineUrine specimen obtained by clean catch procedure / Mbpdfuq7403/02/2025 11:03 AM EDT03/02/2025 11:03 AM EDT Narrative Resulting Agency Comment Performing Organization Information ?Site ID: QPT ?Name: [facility] ?Address: [place] , [address] [place] [phone] ?Director: Tomás Sharma MD Authorizing ProviderResult TypeResult Noelle ROBERTS URINE ORDERABLES Final ResultPerforming OrganizationAddressCity/State/ZIP CodePhone Number QUEST * Diabetic Retinopathy Screening - OU - Both Eyes (10/14/2024 12:45 PM EDT) Anatomical RegionLateralityModalityHeadOther Narrative Authorizing ProviderResult TypeResult StatusAmanda Lopez MDOPHTH PHOTOGRAPHY Final Result * Colonoscopy (09/15/2022 12:00 PM EST)Anatomical RegionLateralityModality EndoscopySpecimen (Source)Anatomical Location / LateralityCollection Method / VolumeCollection TimeReceived Time09/15/2022 12:00 PM EST Narrative 09/15/2022 12:00 PM EST PERFORMED AT [facility] LOCATION:[id number] 5 mm polyp Procedure Note CONVERSION, GENERIC - 11/27/2022 PERFORMED AT [facility] LOCATION:[id number] 5 mm polyp Authorizing ProviderResult TypeResult StatusAmanda Lopez MDENDOSCOPY PROCEDURE ORDERABLESFinal Result from Last 3 Months or Most Recently Relevant to Health Maintenance Insurance Advance Directives TypeDate RecordedPatient RepresentativeExplanationAdvance Directives and Living Will Living WillAdvance Directives and Living Will01/19/2019 2018-05-05 POA Care Teams Team MemberRelationshipSpecialtyStart DateEnd Date Amanda Lopez MD [address], [place] [id number] PCP - GeneralFamily Medicine11/18/22 Amanda Lopez MD [address] [place] [address] PCP - ACO Reach09/11/23 Jana Varner LPN Licensed Practical [facility]Val[facility] Medicine10/19/24
== END 2025-06-29 08:01 | disposition home or self-care (01) ==
LOC: FHNEUROLOG 07-03 07:16
PROVIDERS: PCP Psychiatry & Neurology Neurology; Visit Provider Psychiatry & Neurology Neurology
DX: G47.33 Obstructive sleep apnea (adult) (pediatric) (principal)
CPT/HCPCS: G0463